=== PATIENT | female | born 1960 | race Caucasian/White ===

== ENCOUNTER → 2017-03-31 12:07 | Outpatient (CLI) | payer BC | END | disposition home or self-care (01) | LOC: D.US 12:07 | DX: I65.23 Occlusion and stenosis of bilateral carotid arteries (principal) ==

== ENCOUNTER → 2017-04-25 14:30 | Outpatient (CLI) | payer BC | END | disposition home or self-care (01) | LOC: D.MAMMO 10:00 | DX: Z12.31 Encounter for screening mammogram for malignant neoplasm of breast (principal) ==

== ENCOUNTER → 2018-05-22 14:04 | Outpatient (CLI) | payer OTHER | END | disposition home or self-care (01) | LOC: D.US 14:04 | DX: I65.23 Occlusion and stenosis of bilateral carotid arteries (principal) ==

== ENCOUNTER → 2019-01-25 08:25 | Outpatient (CLI) | payer OTHER | END | disposition home or self-care (01) | LOC: D.MRI 08:25 | PROVIDERS: ATTEND Clinical Nurse Specialist Family Health | DX: M25.562 Pain in left knee (principal) ==

== ENCOUNTER → 2019-03-01 09:21 | Outpatient (CLI) | payer OTHER ==
[~2019-03-01 09:21] MED LIST: ACETAMINOPHEN325 MG; ALEVE220 MG; CALCIUM 250+D T1 TAB PO; FAMOTIDINE10 MG PO
[2019-03-20 07:16] VITALS: BMI 15.0
== END | disposition home or self-care (01) ==
LOC: D.MRI 09:21
PROVIDERS: ATTEND Orthopaedic Surgery
DX: M25.511 Pain in right shoulder (principal)

== ENCOUNTER 2019-03-20 06:50 | Day surgery (SDC) | payer OTHER ==
[2019-03-15 10:02] LABS: BASOPHILS 0.2 % (0-2); EOSINOPHILS 0.3 % (0-7); HEMATOCRIT 40.2 % (36.0-48.0); HEMOGLOBIN 13.7 g/dL (12-16); IMMATURE GRANULOCYTES 0.2 % (0-5); LYMPHOCYTES 14.2 % (15-50); MCH 31.1 pg (26.0-34.0); MCHC 34.1 g/dL (31.0-37.0); MCV 91.4 fL (80.0-100.0); MEAN PLATELET VOLUME 9.2 fL (7.4-10.4); MONOCYTES 6.1 % (2-11); PLATELET COUNT 327 10x3/uL (130-400); RDW 13.6 % (11.5-14.5); WBC 9.2 10x3/uL (4.8-10.8)
[2019-03-15 10:13] LABS: CALC OSMOLALITY 270 mosm/kg (275-300); CARBON DIOXIDE 26.3 mmol/L (21.0-32.0); CHLORIDE - SERUM 99 mmol/L (98-107); CREATININE - SERUM 0.7 mg/dL (0.6-1.3); GLUCOSE 86 mg/dL (74-106); POTASSIUM - SERUM 3.8 mmol/L (3.5-5.1); SODIUM 136 mmol/L (136-145); UREA NITROGEN 13 mg/dL (7-18); eGFR NON AFRICAN AMERICAN > 90 mL/min (90-120)
[~2019-03-20] VITALS: Ht 170.2 cm; Wt 43.5 kg
[2019-03-20 07:16] VITALS: BP 136/85; Ht 170.2 cm; Wt 43.5 kg
--- NOTE | 2019-03-20 14:54 | NUR ---
1250 MEDICATED FOR PAIN 5/10 RIGHT SHOULDER PAIN. PALP PULSE AND WIGGLES FINGERS. LIGHT SENSATION TO FINGERS WIGGLES FREELY. 1430 VOMITED MODERATE AMT OF FLUID. IVF COMPLETED SECOND BAG. WALKED TO BATHROOM AND VOIDED A MODERATE AMT OF URINE. IV REMOVED AND ASSISTED PT WITH GETTING DRESSED. INSTRUCTIONS GIVEN.
--- NOTE | 2019-03-20 14:58 | NUR ---
1210 MEDICATED PO FOR PAIN. AND NAUSEA. TOLERATED FEW SALTINE CRACKERS. CAFFEEN H/A. TOLERATED A 1/2 CUP COFFEE.
== END 2019-03-20 14:50 | disposition home or self-care (01) ==
LOC: D.OPS 06:50 → D.PAN 08:15 → D.OPS 09:00 → D.PAN 09:00 → D.OPS 14:50
PROVIDERS: ATTEND Orthopaedic Surgery
DX: M65.811 Other synovitis and tenosynovitis, right shoulder (principal); M19.011 Primary osteoarthritis, right shoulder; M75.41 Impingement syndrome of right shoulder; M75.91 Shoulder lesion, unspecified, right shoulder; S43.401A Unspecified sprain of right shoulder joint, initial encounter; X58.XXXA Exposure to other specified factors, initial encounter; Z01.812 Encounter for preprocedural laboratory examination

== ENCOUNTER → 2019-05-13 10:04 | Outpatient (CLI) | payer OTHER ==
[2019-03-20 07:16] VITALS: BMI 15.0
[~2019-05-13 10:04] MED LIST changes: +LISINOPRIL2.5 MG PO
== END | disposition home or self-care (01) ==
LOC: D.US 10:04
PROVIDERS: ATTEND Internal Medicine Cardiovascular Disease
DX: I65.23 Occlusion and stenosis of bilateral carotid arteries (principal)

== ENCOUNTER 2019-05-29 06:20 | Day surgery (SDC) | payer OTHER ==
[2019-05-24 10:36] LABS: BASOPHILS 0.3 % (0-2); EOSINOPHILS 2.2 % (0-7); IMMATURE GRANULOCYTES 0.1 % (0-5); LYMPHOCYTES 19.9 % (15-50); MCHC 32.6 g/dL (31.0-37.0); MCV 95.1 fL (80.0-100.0); MEAN PLATELET VOLUME 9.2 fL (7.4-10.4); MONOCYTES 7.5 % (2-11); PLATELET COUNT 340 10x3/uL (130-400); RBC 4.52 10x6/uL (4.00-5.40); RDW 13.2 % (11.5-14.5); WBC 6.8 10x3/uL (4.8-10.8)
[2019-05-24 10:54] LABS: CALC OSMOLALITY 280 mosm/kg (275-300); CALCIUM 9.4 mg/dL (8.5-10.1); CARBON DIOXIDE 28.3 mmol/L (21.0-32.0); CHLORIDE - SERUM 104 mmol/L (98-107); CREATININE - SERUM 0.7 mg/dL (0.6-1.3); GLUCOSE 87 mg/dL (74-106); POTASSIUM - SERUM 4.2 mmol/L (3.5-5.1); SODIUM 141 mmol/L (136-145); UREA NITROGEN 15 mg/dL (7-18); eGFR NON AFRICAN AMERICAN > 90 mL/min (90-120)
[~2019-05-29] VITALS: Ht 170.2 cm; Wt 45.4 kg
[2019-05-29 07:28] VITALS: BP 113/87; Ht 170.2 cm; Wt 45.4 kg
--- NOTE | 2019-05-29 11:45 | NUR ---
1140 WARM BLANKETS PROVIDED. CRUTCHES DELIVERED.
== END 2019-05-29 14:15 | disposition home or self-care (01) ==
LOC: D.OPS 06:20 → D.PAN 11:15 → D.OPS 14:15
PROVIDERS: ATTEND Orthopaedic Surgery
DX: S83.242A Other tear of medial meniscus, current injury, left knee, initial encounter (principal); S83.282A Other tear of lateral meniscus, current injury, left knee, initial encounter; X58.XXXA Exposure to other specified factors, initial encounter; M65.862 Other synovitis and tenosynovitis, left lower leg; M94.262 Chondromalacia, left knee
CPT/HCPCS: 29880; 29875; 0232T

== ENCOUNTER 2020-01-13 19:00 | Outpatient (CLI) | payer OTHER ==
[2019-05-29 07:28] VITALS: BMI 15.7
== END 2020-01-13 23:59 | disposition home or self-care (01) ==
LOC: D.MAMMO 19:00
PROVIDERS: ATTEND Family Medicine
DX: Z12.31 Encounter for screening mammogram for malignant neoplasm of breast (principal)